=== PATIENT | female | born 1935 | race Caucasian/White ===

== ENCOUNTER 2016-10-09 10:49 | Day surgery (SDC) | payer OTHER ==
[~2016-10-09] VITALS: Ht 170.2 cm; Wt 62.6 kg
[~2016-10-09 10:49] MED LIST: ACET500C OR; ACETAMINOPHEN 325 MG TAB PO PRN; ACETYLCHOLINE OPHTH SOLN 1% 2ML (MIOCHOL-E) As Ordered ONE; AMLO5TAB OR; AMLODIPINE OR; ASPI81TA83 OR; ASPI81TA85 PO; BALANCED SALT IRRIGATION SOLUTION 500ML BAG (FOR OR EYE MACHINE) As Ordered ONE; BENA5TAB OR; CALC600T60 PO; CALCTAB22 OR; CEFUROXIME 1MG/0.1ML INTRACAMERAL INJ As Ordered ONE; COZA25TA8 OR; CRES20TA OR; CYCLOPENTOLATE 2% OPHTH SOLN 2ML BTL OS ONE; FISH100049 PO; FLUT1SPR2; HEALON DUET (HEALON 10MG/ML 0.55ML & HEALON ENDOCOAT 30MG/ML 0.85ML) As Ordered ONE; HYDR25TA6 OR; HYDR25TA6 PO; LEVO75TA4 PO; LIDOCAINE 1% SDV 5 ML VIAL As Ordered ONE; LIDOCAINE 3.5 % 1ML OPHTH TOPICAL GEL OU ONE; LISI20TA5 OR; LOSA50TA20 PO; LOVAZA OR; MAGN250T OR; MAGN500C PO; METO1TAB33 PO; MULTIVIT OR; OFLOXACIN 0.3 % (OCUFLOX) OPTH SOL 5ML OS ONE; OMEP20CA3 PO; PHENYLEPHRINE 2.5% OPHTH SOL 2ML OS ONE; POVIDONE-IODINE 5% OPHTH PREP SOL 30ML As Ordered ONE; PROAAER10 INH; PROPARACAINE 0.5% OPHTH SOL 15ML OS PRN; RANI150C OR; ROSU40TA PO; SPIR1CAP INH; TOPR100T OR; TRIC145T19 OR; TROPICAMIDE 1% OPHTH SOLN 2ML OS ONE; ULTRTA PO; VIT D 2000 OR; VITA100067 PO; VITAMIN D50000 UNT OR; [UNRECOGNIZED DRUG - OTHER] OR
[2016-10-09] MEDS ORDERED: TROPICAMIDE 1% OPHTH SOLN 2ML As Ordered ONE (11:07)
[2016-10-09] MEDS ORDERED: OFLOXACIN 0.3 % (OCUFLOX) OPTH SOL 5ML As Ordered ONE (11:07)
[2016-10-09] MEDS ORDERED: PHENYLEPHRINE 2.5% OPHTH SOL 2ML As Ordered ONE (11:07)
[2016-10-09] MEDS ORDERED: CYCLOPENTOLATE 2% OPHTH SOLN 2ML BTL As Ordered ONE (11:07)
[2016-10-09] MEDS ORDERED: fentaNYL 100 MCG/2 ML INJECTION (J3010) As Ordered ONE (11:36)
[2016-10-09] MEDS ORDERED: MIDAZOLAM INJ 2 MG/2 ML VIAL (J2250) As Ordered ONE (11:36)
[2016-10-09] MEDS ORDERED: D5W/0.2% SODIUM CHLORIDE 250 ML IV ONE (11:45)
[2016-10-09 13:00] VITALS: BP 157/70
[2016-10-09] MEDS ORDERED: AcetaZOLAMIDE 500 MG ER CAP PO ONE (13:00)
[2016-10-09] MEDS ORDERED: KETOROLAC 0.5% OPHTH SOLN OS ONE (13:00)
[2016-10-09] MEDS ORDERED: LR 1,000 ML IV SCH (13:00)
[2016-10-09] MEDS ORDERED: TRIMETHOBENZAMIDE 300 MG CAP PO PRN (13:00)
[2016-10-09] MEDS ORDERED: ONDANSETRON 4MG/2ML VIAL (J2405) IV PRN (13:00)
--- NOTE | 2016-10-10 13:50 | RO ---
DATE OF PROCEDURE: 10/09/2016 PREPROCEDURE DIAGNOSIS: Age related nuclear cataract, left eye. POSTPROCEDURE DIAGNOSIS: Age related nuclear cataract, left eye. PROCEDURE: Phacoemulsification and posterior chamber intraocular lens implantation, left eye. The lens used was AU00T0, 22.0 diopter. SURGEON: Leatha Lawson MD CLOTHES IRONER: ANESTHESIA: Topical with sedation. DESCRIPTION OF PROCEDURE: The patient was prepped and draped in the usual fashion. A lid speculum was placed between the lids. The eye was fixated. A stab incision was made to the anterior chamber, and 1% non-preserved lidocaine was instilled. Then, viscoelastic was instilled. The eye was re-fixated. A 2.75 mm sapphire keratome was used to make a clear corneal temporal limbal incision. Capsulorrhexis was begun with a 30-gauge bent needle and then carried out in a circular fashion with capsulorrhexis forceps. The lens was hydrodissected, and then the phacoemulsification unit was used to make a groove in the nucleus in two meridians. The nucleus was then cracked into four quadrants. Each quadrant was removed with the phacoemulsification unit. Any remaining cortex was removed with the irrigation and aspiration (I and A) unit. Capsular bag was refilled with viscoelastic. A posterior chamber intraocular lens was placed in the capsular bag without difficulty. Any remaining viscoelastic was removed with the I and A unit. The wound was hydrated, and Miochol and cefuroxime were instilled into the anterior chamber. The patient tolerated the procedure well and went to the recovery room in stable condition.
== END 2016-10-09 13:18 | disposition home or self-care (01) ==
LOC: M SDC 10:49
PROVIDERS: ATTEND Ophthalmology
DX: H25.12 Age-related nuclear cataract, left eye (principal); I10 Essential (primary) hypertension; E78.5 Hyperlipidemia, unspecified; E03.9 Hypothyroidism, unspecified; J44.9 Chronic obstructive pulmonary disease, unspecified; Z79.82 Long term (current) use of aspirin; Z79.899 Other long term (current) drug therapy; F17.210 Nicotine dependence, cigarettes, uncomplicated
CPT/HCPCS: 66984; J2250; J3010; V2632

== ENCOUNTER 2016-11-06 07:35 | Day surgery (SDC) | payer OTHER ==
[~2016-11-06] VITALS: Ht 170.2 cm; Wt 62.6 kg
[~2016-11-06 07:35] MED LIST changes: +CYCLOPENTOLATE 2% OPHTH SOLN 2ML BTL OD ONE; -CYCLOPENTOLATE 2% OPHTH SOLN 2ML BTL OS ONE; +OFLOXACIN 0.3 % (OCUFLOX) OPTH SOL 5ML OD ONE; -OFLOXACIN 0.3 % (OCUFLOX) OPTH SOL 5ML OS ONE; +PHENYLEPHRINE 2.5% OPHTH SOL 2ML OD ONE; -PHENYLEPHRINE 2.5% OPHTH SOL 2ML OS ONE; +PROPARACAINE 0.5% OPHTH SOL 15ML OD PRN; -PROPARACAINE 0.5% OPHTH SOL 15ML OS PRN; +TROPICAMIDE 1% OPHTH SOLN 2ML OD ONE; -TROPICAMIDE 1% OPHTH SOLN 2ML OS ONE
[2016-11-06] MEDS ORDERED: LR 1,000 ML IV ONE (08:00)
[2016-11-06] MEDS ORDERED: fentaNYL 100 MCG/2 ML INJECTION (J3010) As Ordered ONE (08:40)
[2016-11-06] MEDS ORDERED: MIDAZOLAM INJ 2 MG/2 ML VIAL (J2250) As Ordered ONE (08:40)
[2016-11-06] MEDS ORDERED: KETOROLAC 0.5% OPHTH SOLN OD ONE (09:00)
[2016-11-06] MEDS ORDERED: AcetaZOLAMIDE 500 MG ER CAP PO ONE (09:00)
[2016-11-06] MEDS ORDERED: TRIMETHOBENZAMIDE 300 MG CAP PO PRN (09:00)
[2016-11-06 09:30] VITALS: BP 125/55
--- NOTE | 2016-11-06 10:29 | RO ---
DATE OF PROCEDURE: 11/06/2016 PREPROCEDURE DIAGNOSIS: Age-related nuclear cataract, right eye. POSTPROCEDURE DIAGNOSIS: Age-related nuclear cataract, right eye. PROCEDURE PERFORMED: Phacoemulsification and posterior chamber intraocular lens implantation, right eye. The lens used is an AU00T0 22.0 diopter. SURGEON: Leatha Lawson MD ENROLLMENT PROCESSOR: ANESTHESIA: Topical with sedation. DESCRIPTION OF PROCEDURE: The patient was prepped and draped in the usual fashion. A lid speculum was placed between the lids. The eye was fixated. A stab incision was made to the anterior chamber, and 1% nonpreserved lidocaine was instilled. Then, viscoelastic was instilled. The eye was refixated. A 2.75 mm sapphire keratome was used to make a clear corneal temporal limbal incision. Capsulorrhexis was begun with a 30-gauge bent needle and then carried out in a circular fashion with capsulorrhexis forceps. The lens was hydrodissected, and then the phacoemulsification unit was used to make a groove in the nucleus in two meridians. The nucleus was then cracked into four quadrants. Each quadrant was removed with the phacoemulsification unit. Any remaining cortex was removed with the irrigation and aspiration (I and A) unit. Capsular bag was refilled with viscoelastic. A posterior chamber intraocular lens was placed in the capsular bag without difficulty. Any remaining viscoelastic was removed with the I and A unit. The wound was hydrated, and Miochol and cefuroxime were instilled into the anterior chamber. The patient tolerated the procedure well and went to the recovery room in stable condition.
== END 2016-11-06 09:40 | disposition home or self-care (01) ==
LOC: M SDC 07:35
PROVIDERS: ATTEND Ophthalmology
DX: H25.11 Age-related nuclear cataract, right eye (principal); I10 Essential (primary) hypertension; E78.5 Hyperlipidemia, unspecified; E03.9 Hypothyroidism, unspecified; K21.9 Gastro-esophageal reflux disease without esophagitis; M81.0 Age-related osteoporosis without current pathological fracture; J44.9 Chronic obstructive pulmonary disease, unspecified; F17.210 Nicotine dependence, cigarettes, uncomplicated; Z79.899 Other long term (current) drug therapy; Z79.82 Long term (current) use of aspirin
CPT/HCPCS: 66984; J2250; J3010; V2632

== ENCOUNTER → 2017-03-17 | Outpatient (REF) | payer OTHER | LOC: M LAB REF 14:51 | DX: R19.7 Diarrhea, unspecified (principal) | CPT/HCPCS: 87507 ==

== ENCOUNTER → 2017-09-02 | Outpatient (CLI) | payer OTHER ==
[~2017-09-02] MED LIST changes: -ACET500C OR; -ACETAMINOPHEN 325 MG TAB PO PRN; -ACETYLCHOLINE OPHTH SOLN 1% 2ML (MIOCHOL-E) As Ordered ONE; -AMLO5TAB OR; -AMLODIPINE OR; -ASPI81TA83 OR; -ASPI81TA85 PO; -BALANCED SALT IRRIGATION SOLUTION 500ML BAG (FOR OR EYE MACHINE) As Ordered ONE; -BENA5TAB OR; -CALC600T60 PO; -CALCTAB22 OR; -CEFUROXIME 1MG/0.1ML INTRACAMERAL INJ As Ordered ONE; -COZA25TA8 OR; -CRES20TA OR; -CYCLOPENTOLATE 2% OPHTH SOLN 2ML BTL OD ONE; -FISH100049 PO; -FLUT1SPR2; -HEALON DUET (HEALON 10MG/ML 0.55ML & HEALON ENDOCOAT 30MG/ML 0.85ML) As Ordered ONE; -HYDR25TA6 OR; -HYDR25TA6 PO; -LEVO75TA4 PO; -LIDOCAINE 1% SDV 5 ML VIAL As Ordered ONE; -LIDOCAINE 3.5 % 1ML OPHTH TOPICAL GEL OU ONE; -LISI20TA5 OR; -LOSA50TA20 PO; -LOVAZA OR; -MAGN250T OR; -MAGN500C PO; -METO1TAB33 PO; -MULTIVIT OR; -OFLOXACIN 0.3 % (OCUFLOX) OPTH SOL 5ML OD ONE; -OMEP20CA3 PO; -PHENYLEPHRINE 2.5% OPHTH SOL 2ML OD ONE; -POVIDONE-IODINE 5% OPHTH PREP SOL 30ML As Ordered ONE; -PROAAER10 INH; +PROHANCE 279.3MG/ML 15ML VIAL (A9576) As Ordered; +PROHANCE 279.3MG/ML 5ML VIAL (A9576) As Ordered; -PROPARACAINE 0.5% OPHTH SOL 15ML OD PRN; -RANI150C OR; -ROSU40TA PO; -SPIR1CAP INH; -TOPR100T OR; -TRIC145T19 OR; -TROPICAMIDE 1% OPHTH SOLN 2ML OD ONE; -ULTRTA PO; -VIT D 2000 OR; -VITA100067 PO; -VITAMIN D50000 UNT OR; -[UNRECOGNIZED DRUG - OTHER] OR
== END ==
LOC: M RAD 16:57
DX: I70.213 Atherosclerosis of native arteries of extremities with intermittent claudication, bilateral legs (principal); M79.606 Pain in leg, unspecified
CPT/HCPCS: A9576

== ENCOUNTER → 2018-04-21 | Outpatient (REF) | payer OTHER ==
[~2018-04-21] MED LIST changes: +ACET500C OR; +AMLO5TAB OR; +AMLODIPINE OR; +ASPI81TA83 OR; +ASPI81TA85 PO; +BENA5TAB OR; +CALC600T60 PO; +CALCTAB22 OR; +COZA25TA8 OR; +CRES20TA OR; +FISH100049 PO; +FLUT1SPR2; +HYDR25TA6 OR; +HYDR25TA6 PO; +LEVO75TA4 PO; +LISI20TA5 OR; +LOSA50TA88 PO; +LOVAZA OR; +MAGN250T OR; +MAGN500C PO; +METO1TAB33 PO; +MULTIVIT OR; +OMEP20CA3 PO; +PROAAER10 INH; -PROHANCE 279.3MG/ML 15ML VIAL (A9576) As Ordered; -PROHANCE 279.3MG/ML 5ML VIAL (A9576) As Ordered; +RANI150C OR; +ROSU40TA3 PO; +SPIR1CAP INH; +TOPR100T OR; +TRIC145T19 OR; +ULTRTA PO; +VIT D 2000 OR; +VITA100067 PO; +VITAMIN D50000 UNT OR; +[UNRECOGNIZED DRUG - OTHER] OR
== END ==
LOC: M LAB REF 10:22
PROVIDERS: ATTEND Family Medicine
DX: R19.7 Diarrhea, unspecified (principal)

== ENCOUNTER 2018-07-14 10:57 | Day surgery (SDC) | payer MEDICARE ==
[~2018-07-14] VITALS: Ht 170.2 cm; Wt 63.5 kg
[~2018-07-14 10:57] MED LIST changes: +FISH1000 PO; +FLON1SPR; +HYDR25TAB PO; +METO-745 OR; +NS 1,000 ML IV ONE; +RA M500C PO; -TOPR100T OR; +TURM500C5 PO; +VITAD1000T PO
[2018-07-14] MEDS ORDERED: LIDOCAINE 2% INJ 100 MG/5 ML SDV (FOR ANES.) As Ordered ONE (12:51)
[2018-07-14] MEDS ORDERED: PROPOFOL 200 MG/20 ML VIAL As Ordered ONE (12:51)
--- NOTE | 2018-07-14 13:50 | ROOR ---
Patient Name: Bessy Metcalf Procedure Date: 07/14/2018 1:00 PM Date of : 1935 Age: 82 Room: [facility] Gender: Female Note Status: Finalized Procedure: Total Colonoscopy to Cecum + Cold Snare Polypectomy + Hemoclips Indications: Last colonoscopy: 2010, Change in bowel habits Providers: Luan Lyons MD Referring MD: SANTY FONSECA MD Requesting Provider: Medicines: Monitored Anesthesia Care Complications: No immediate complications. Procedure: Pre-Anesthesia Assessment: - The heart rate, respiratory rate, oxygen saturations, blood pressure, adequacy of pulmonary ventilation, and response to care were monitored throughout the procedure. The Colonoscope was introduced through the anus and advanced to the cecum, identified by appendiceal orifice and ileocecal valve. The colonoscopy was performed without difficulty. The patient tolerated the procedure well. The quality of the bowel preparation was excellent. Findings: The perianal and digital rectal examinations were normal. Non-bleeding internal hemorrhoids were found during retroflexion. The hemorrhoids were small and Grade I (internal hemorrhoids that do not prolapse). Multiple small and large-mouthed diverticula were found in the recto-sigmoid colon, sigmoid colon and descending colon. A medium polyp was found in the rectum. The polyp was sessile. The polyp was removed with a cold snare. Resection and retrieval were complete. To prevent bleeding after the polypectomy, two hemostatic clips were successfully placed (MR conditional). There was no bleeding at the end of the procedure. A medium polyp was found at 30 cm proximal to the anus. The polyp was sessile. The polyp was removed with a cold snare. Resection and retrieval were complete. A small polyp was found in the proximal ascending colon. The polyp was sessile. The polyp was removed with a cold snare. Resection and retrieval were complete. A large polyp was found in the distal ascending colon. The polyp was sessile. The polyp was removed with a cold snare. Resection and retrieval were complete. To prevent bleeding after the polypectomy, four hemostatic clips were successfully placed (MR conditional). There was no bleeding at the end of the procedure. The exam was otherwise without abnormality on direct and retroflexion views. Impression: - Non-bleeding internal hemorrhoids. - Diverticulosis in the recto-sigmoid colon, in the sigmoid colon and in the descending colon. - One medium polyp in the rectum, removed with a cold snare. Resected and retrieved. Clips (MR conditional) were placed. - One medium polyp at 30 cm proximal to the anus, removed with a cold snare. Resected and retrieved. - One small polyp in the proximal ascending colon, removed with a cold snare. Resected and retrieved. - One large polyp in the distal ascending colon, removed with a cold snare. Resected and retrieved. Clips (MR conditional) were placed. - The examination was otherwise normal on direct and retroflexion views. - The exam was otherwise normal to the cecum. Recommendation: - Patient has a contact number available for emergencies. The signs and symptoms of potential delayed complications were discussed with the patient. Return to normal activities tomorrow. Written discharge instructions were provided to the patient. - High fiber diet. - Discharge patient to home. - Continue present medications. - Await pathology results. - Telephone GI clinic for pathology results in 1 week. - Repeat colonoscopy for symptoms only. - Return to referring physician. - The findings and recommendations were discussed with the patient's family. Luan Lyons MD Luan Lyons MD 07/14/2018 1:50:00 PM Electronically signed by Luan Lyons MD Number of Addenda: 0 Note Initiated On: 07/14/2018 1:00 PM Estimated Blood Loss: Estimated blood loss: none.
[2018-07-14 14:05] VITALS: BP 127/59
== END 2018-07-14 14:19 | disposition home or self-care (01) ==
LOC: M OPP 10:57
PROVIDERS: ATTEND Internal Medicine Gastroenterology
DX: R19.4 Change in bowel habit (principal); K64.0 First degree hemorrhoids; K62.1 Rectal polyp; D12.2 Benign neoplasm of ascending colon; D12.0 Benign neoplasm of cecum; K57.30 Diverticulosis of large intestine without perforation or abscess without bleeding; Z79.899 Other long term (current) drug therapy; F17.210 Nicotine dependence, cigarettes, uncomplicated

== ENCOUNTER → 2019-12-16 | Outpatient (CLI) | payer MEDICARE ==
[~2019-12-16] MED LIST changes: +ASPI81CH33 PO; -ASPI81TA85 PO; +ASPI81TA86 PO; +CHOL100029 PO; +D31000TA2 PO; -NS 1,000 ML IV ONE; +OMEP1CAP73 PO; -OMEP20CA3 PO; -ROSU40TA3 PO; +ROSU40TA4 PO; +TREL1AER PO; -VITAD1000T PO
--- NOTE | 2019-12-16 12:06 | REP ---
INDICATION: FORMER,SMOKER COMPARISON: None. TECHNIQUE: Axial noncontrast images from the thoracic inlet to the upper abdomen using low-dose lung screening technique. FINDINGS: Advanced COPD/emphysematous changes are appreciated along with minimal scattered scarring. There is a small non solid focus in the anterior left upper lobe measuring 12 mm maximal diameter (image 29). No consolidation, further suspicious nodule or mass lesion appreciated. No effusion or pneumothorax. Tracheobronchial tree demonstrates a mild bronchiectasis. Atherosclerotic changes to the thoracic aorta and coronary arteries noted. IMPRESSION: 1. Lung rads category 2 with 12 mm non solid nodule in the anterior left upper lobe. Recommendations include annual low dose CT surveillance. 2. Advanced COPD/emphysematous disease. <Electronically signed by Jaison Agarwal > 12/16/19 [id number]
--- NOTE | 2019-12-16 15:20 | MEDONCENPD ---
Date/Time of Encounter Date of Encounter: Dec 16, 2019 Encounter IMPRESSION: 1. Lung rads category 2 with 12 mm non solid nodule in the anterior left upper lobe. Recommendations include annual low dose CT surveillance. 2. Advanced COPD/emphysematous disease. has an [id number]/20 would oerder a pet scan at that time JOCELYNN REYNOLDS MD Dec 16, 2019 15:20
== END ==
LOC: M RAD 10:50
PROVIDERS: ATTEND Internal Medicine Hematology & Oncology
DX: Z12.2 Encounter for screening for malignant neoplasm of respiratory organs (principal); Z87.891 Personal history of nicotine dependence

== ENCOUNTER → 2024-04-29 | Outpatient (CLI) | payer MEDICARE ==
[~2024-04-29] MED LIST changes: -D31000TA2 PO; +HYDR-3490 PO; -HYDR25TAB PO; +LOSA50TA28 PO; -LOSA50TA88 PO; -ROSU40TA4 PO; +ROSU40TA81 PO; +VITA100093 PO
== END ==
LOC: M WUC 13:50
PROVIDERS: ATTEND Student in an Organized Health Care Education/Training Program
DX: M79.671 Pain in right foot (principal)

== ENCOUNTER → 2024-10-18 | Outpatient (REF) | payer MEDICARE | LOC: M SFHCDERM 17:33 | PROVIDERS: ATTEND Physician Assistant | DX: T14.8XXA Other injury of unspecified body region, initial encounter (principal) ==

== ENCOUNTER 2025-02-12 15:33 | Inpatient (IN) | payer MEDICARE ==
[~2025-02-12] VITALS: Ht 170.2 cm; Wt 51.4 kg
[2025-02-12] MEDS ORDERED: OMEP-173 PO (16:04)
[2025-02-12] MEDS ORDERED: FURO20TA2 PO (16:04)
[2025-02-12] MEDS ORDERED: MECL-136 PO (16:04)
[2025-02-12] MEDS ORDERED: IPRA6SP (16:04)
[2025-02-12] MEDS ORDERED: VENTAER INH (16:04)
[2025-02-12 16:33] LABS: VENOUS BASE EXCESS 6.3 (-2.0-2.0); VENOUS HCO3 35.0 MMOL/L (23.0-27.0); VENOUS O2 SATURATION 69.3 % (60.0-80.0); VENOUS PARTIAL PRESSURE CO2 70.6 mmHg (38.0-50.0); VENOUS PARTIAL PRESSURE O2 38.7 mmHg (30.0-50.0); VENOUS PH 7.313 UNITS (7.330-7.430); VENOUS STANDARD HCO3 29.5 MMOL/L; VENOUS TOTAL CO2 37.2 MMOL/L (24.0-28.0)
[2025-02-12 16:36] LABS: BASO # 0.0 10^3/uL (0.0-0.2); BASO % 0.2 % (0.0-1.0); EOS # 0.0 10^3/uL (0.0-0.5); EOS % 0.0 % (0.0-3.0); LYMPH # 1.0 10^3/uL (1.5-5.0); LYMPH % 7.8 % (24.0-44.0); MONO # 1.0 10^3/uL (0.0-0.8); MONO % 7.7 % (2.0-8.0); NEUTROPHILS # 11.2 10^3/uL (1.5-8.5); NEUTROPHILS % 83.9 % (36.0-66.0); PLATELET COUNT, AUTOMATED 326 10^3/uL (150-450)
[2025-02-12 17:02] LABS: CPK CREATINE PHOSPHOKINASE 730 U/L (34-145)
[2025-02-12 17:03] LABS: ALT/SGPT 29 U/L (7.0-40); AST/SGOT 56 U/L (<34); CALCIUM LEVEL 9.3 MG/DL (8.3-10.6); CARBON DIOXIDE LEVEL 37 MMOL/L (20-31); CHLORIDE LEVEL 103 MMOL/L (98-107); CREATININE FOR GFR 0.45 MG/DL (0.55-1.30); GLOMERULAR FILTRATION RATE > 90.0 (>32); POTASSIUM SERUM 3.7 MMOL/L (3.5-5.1); SODIUM LEVEL 145 MMOL/L (136-145)
[2025-02-12] MEDS ORDERED: ISOVUE-370 76% 100 ML VIAL As Ordered ONE (17:19)
[2025-02-12 17:26] LABS: OSMOLALITY SERUM 306 MOSM/KG (280-301)
[2025-02-12 17:50] LABS: KETONE, URINE AUTO RFX TRACE mg/dL (NEGATIVE); LEUKOCYTE ESTERASE UR AUTO RFX NEGATIVE (NEGATIVE); NITRITE, URINE AUTO RFX NEGATIVE (NEGATIVE); RBC, URINE AUTO RFX TNTC /HPF (0-3); SQUAM EPITHELIAL CELL UR AURFX 0 /HPF (0-6); WBC, URINE AUTO RFX 0 /HPF (0-3)
[2025-02-12] MEDS: NS (Normal Saline) 0.9% 1,000 ML IV ONE (17:53)
[2025-02-12] MEDS: LIDOCAINE 2% 5 ML JELLY UROJET TOP ONE (18:07)
[2025-02-12] MEDS: ACETAMINOPHEN *IV* 500 MG in IV 1 EA IV ONE (19:40)
[2025-02-12] MEDS ORDERED: ONDANSETRON 4MG/2ML VIAL IV PRN (19:50)
[2025-02-12] MEDS ORDERED: KETOROLAC 30 MG/ML 1 ML VIAL IV PRN (19:50)
[2025-02-12] MEDS ORDERED: MOM 30 ML SUSPENSION UDC PO PRN (19:50)
[2025-02-12] MEDS: IPRATROPIUM 0.5 MG/ALBUTEROL 2.5 MG INH SOL UD 3 ML NEB SCH (20:00)
[2025-02-12] MEDS: NS (Normal Saline) 0.9% 1,000 ML IV SCH (20:29)
[2025-02-12] MEDS: METOPROLOL SUCC. 100 MG *XL* TAB PO ONE (20:30)
[2025-02-12 21:45] VITALS: BP 176/79; TEMP 98.4; O2SAT 97
[2025-02-12] MEDS ORDERED: SF 51.1C PO (22:56)
[2025-02-12] MEDS ORDERED: FISH1CAP26 PO (22:56)
[2025-02-12] MEDS ORDERED: ASPI81TA26 PO (22:56)
[2025-02-12] MEDS ORDERED: FLUTISP (22:56)
[2025-02-12] MEDS ORDERED: HOME MED LIST COMPLETE! XX SCH (23:00)
[2025-02-13] MEDS: LOSARTAN 50 MG TABLET PO SCH (02:49)
[2025-02-13 05:01] VITALS: BP 180/81; TEMP 97.9; O2SAT 90
[2025-02-13] MEDS: LEVOTHYROXINE 75 MCG TABLET (0.075 MG) PO SCH (05:36)
[2025-02-13 05:44] LABS: PLATELET COUNT, AUTOMATED 363 10^3/uL (150-450)
[2025-02-13 06:11] LABS: ALT/SGPT 34 U/L (7.0-40); AST/SGOT 76 U/L (<34); CALCIUM LEVEL 8.7 MG/DL (8.3-10.6); CARBON DIOXIDE LEVEL 31 MMOL/L (20-31); CHLORIDE LEVEL 103 MMOL/L (98-107); CREATININE FOR GFR 0.40 MG/DL (0.55-1.30); GLOMERULAR FILTRATION RATE > 90.0 (>32); MAGNESIUM LEVEL 1.5 MG/DL (1.8-2.4); POTASSIUM SERUM 3.6 MMOL/L (3.5-5.1); SODIUM LEVEL 142 MMOL/L (136-145)
[2025-02-13] MEDS ORDERED: ENOXAPARIN 30 MG/0.3 ML SYRINGE (J1650 PER 10MG) SC SCH (09:00)
[2025-02-13] MEDS: MAGNESIUM OXIDE 400 MG TAB PO SCH (09:27)
[2025-02-13] MEDS: PANTOPRAZOLE 40MG TAB PO SCH (09:27)
[2025-02-13] MEDS: MAG SULF 1GM/100ML (MAG RUN) 1 GM in IV 1 EA IV SCH (09:27)
[2025-02-13] MEDS: ENOXAPARIN 40 MG/0.4 ML SYRINGE (J1650 PER 10MG) SC SCH (09:28)
[2025-02-13] MEDS: NICOTINE 21 MG/24 HR 1 EA TRANSDERMAL TD SCH (09:28)
[2025-02-13 12:18] VITALS: BP 148/79; TEMP 99.3; O2SAT 82
[2025-02-13] MEDS ORDERED: MECLIZINE 12.5 MG TAB PO PRN (15:35)
[2025-02-13] MEDS: FUROSEMIDE 20 MG TAB PO SCH (16:45)
[2025-02-13] MEDS: METOPROLOL SUCC. 100 MG *XL* TAB PO SCH (16:45)
[2025-02-13 20:05] VITALS: BP 145/67; TEMP 98.6; O2SAT 97
[2025-02-13] MEDS: ROSUVASTATIN 10 MG TAB PO SCH (20:47)
[2025-02-13] MEDS: ASPIRIN 81 MG ENTERIC TABLET PO SCH (20:48)
[2025-02-13 20:49] VITALS: BP 145/67
[2025-02-13] MEDS: FLUTICASONE PROPIONATE 0.05% NASAL SPRAY 16 GM SCH (20:49)
[2025-02-13] MEDS: IPRATROPIUM 0.06% NASAL SPRAY 15 ML (ATROVENT) SCH (21:50)
[2025-02-14] VITALS (18 sets, daily range): BP systolic 144–150; BP diastolic 79–80; TEMP 98.4–99.8; O2SAT 85–96
[2025-02-14] MEDS: FUROSEMIDE 40 MG/4 ML VIAL IV STA (04:25)
[2025-02-14] MEDS: cefTRIAXone SOD 2 GM in DEXTROSE 5% (D5W) ADV/MINI-BAG 50 ML IV SCH (04:27)
[2025-02-14] MEDS: ALBUTEROL SULFATE 2.5 MG/0.5 ML INH CONCENTRATE NEB SOLN NEB PRN (04:33)
[2025-02-14 07:47] LABS: PLATELET COUNT, AUTOMATED 353 10^3/uL (150-450)
[2025-02-14] MEDS: OMEPRAZOLE 20MG CAP PO SCH (08:20)
[2025-02-14 08:54] LABS: ALT/SGPT 41.0 U/L (7.0-40); AST/SGOT 78.0 U/L (<34); CALCIUM LEVEL 9.0 MG/DL (8.3-10.6); CARBON DIOXIDE LEVEL 32.0 MMOL/L (20-31); CHLORIDE LEVEL 106.0 MMOL/L (98-107); CREATININE FOR GFR 0.5 MG/DL (0.55-1.30); GLOMERULAR FILTRATION RATE 89.6 (>32); POTASSIUM SERUM 3.5 MMOL/L (3.5-5.1); SODIUM LEVEL 146.0 MMOL/L (136-145)
[2025-02-14] MEDS ORDERED: predniSONE 20 MG TAB PO SCH (09:00)
[2025-02-14] MEDS ORDERED: DOXYCYCLINE HYCLATE 100 MG in DEXTROSE 5% (D5W) MINI-BAG PLU 100 ML IV SCH (09:00)
[2025-02-14] MEDS ORDERED: MORPHINE 10 MG/0.5 ML ORAL CONCENTRATE SOLUTION U/D SL PRN (09:25)
[2025-02-15] MEDS: ACETAMINOPHEN 325 MG TAB PO PRN (11:17)
[2025-02-15] MEDS ORDERED: IPRATROPIUM 0.5 MG/ALBUTEROL 2.5 MG INH SOL UD 3 ML NEB PRN (15:05)
[2025-02-15] MEDS: MORPHINE 10 MG/0.5 ML ORAL CONCENTRATE SOLUTION U/D SL SCH (16:53)
[2025-02-15] MEDS: LORazepam 1 MG TAB PO PRN (18:42)
[2025-02-15] MEDS: SCOPOLAMINE 1MG TRANSDERMAL PATCH TOP PRN (20:37)
[2025-02-15] MEDS: ATROPINE SULFATE 1% OPHTH SOLN 2 ML BTL SL PRN (21:13)
[2025-02-16] MEDS ORDERED: MORPHINE 10 MG/0.5 ML ORAL CONCENTRATE SOLUTION U/D SL PRN (09:15)
== END 2025-02-16 10:55 | disposition expired | DRG 551 ==
LOC: M ED 15:33 → M ED INP 19:49 → M MSPAV 21:45
PROVIDERS: ADMIT Internal Medicine; ATTEND Student in an Organized Health Care Education/Training Program
DX: S12.400A Unspecified displaced fracture of fifth cervical vertebra, initial encounter for closed fracture (principal); G93.41 Metabolic encephalopathy; J96.21 Acute and chronic respiratory failure with hypoxia; C34.92 Malignant neoplasm of unspecified part of left bronchus or lung; J44.1 Chronic obstructive pulmonary disease with (acute) exacerbation; E46 Unspecified protein-calorie malnutrition; J81.1 Chronic pulmonary edema; Z66 Do not resuscitate; I73.9 Peripheral vascular disease, unspecified; R62.7 Adult failure to thrive; E83.42 Hypomagnesemia; Z99.81 Dependence on supplemental oxygen; K21.9 Gastro-esophageal reflux disease without esophagitis; F17.200 Nicotine dependence, unspecified, uncomplicated; B34.8 Other viral infections of unspecified site; R29.6 Repeated falls; I10 Essential (primary) hypertension; E03.9 Hypothyroidism, unspecified; Z79.82 Long term (current) use of aspirin; Z79.890 Hormone replacement therapy; Z79.899 Other long term (current) drug therapy; W19.XXXA Unspecified fall, initial encounter; Y92.009 Unspecified place in unspecified non-institutional (private) residence as the place of occurrence of the external cause